=== PATIENT | male | born 1965 | race Two or more races ===

== ENCOUNTER 2017-04-27 19:36 | Emergency (ER) | payer MEDICAID ==
[~2017-04-27] VITALS: Ht 162.6 cm; Wt 72.6 kg
[2017-04-27 19:40] VITALS: BP 95/59
[2017-04-27 21:30] VITALS: BP 105/70
[2017-04-27 23:15] VITALS: BP 103/66
[2017-04-28 00:28] VITALS: BP 122/76
[2017-04-28 01:07] VITALS: BP 122/76
--- NOTE | 2017-04-29 09:51 | Emergency Room Report ---
History of Present Illness General Chief Complaint: Alcohol Intoxication Source: Patient Present Illness HPI 52-year-old male presents ED for evaluation. Patient was found sleeping in front of liquor store, owner professional engineer called 911. Patient has been there every day as per owner professional engineer. patient admits to drinking alcohol. Denies any drug use. Denies hitting his head or LOC. Patient states he wants food and a place to sleep. No other aggravating relieving factors. Denies any other associated symptoms Allergies: Coded Allergies: UNABLE TO ASSESS (Unverified , 04/27/17) Patient History Past Medical History: none Past Surgical History: none Pertinent Family History: none Social History: Reports: alcohol use, Denies: smoking, drug use Immunizations: UTD Reviewed Nursing Documentation: PMH: Agreed, PSxH: Agreed Nursing Documentation-PMH Past Medical History: No Stated History Review of Systems All Other Systems: negative except mentioned in HPI Physical Exam Vital Signs Date Time Temp Pulse Resp B/P (MAP) Pulse Ox O2 Delivery O2 Flow Rate FiO2 04/27/17 19:22 97.3 73 20 95/59 99 Room Air Sp02 EP Interpretation: reviewed, normal General Appearance: no apparent distress, alert, GCS 15, non-toxic Head: normocephalic, atraumatic Eyes: bilateral eye normal inspection, bilateral eye PERRL ENT: hearing grossly normal, normal pharynx, no angioedema, normal voice Neck: full range of motion, supple/symm/no masses Respiratory: chest non-tender, lungs clear, normal breath sounds, speaking full sentences Cardiovascular #1: regular rate, rhythm, no edema Cardiovascular #2: 2+ carotid (R), 2+ carotid (L), 2+ radial (R), 2+ radial (L) , 2+ dorsalis pedis (R), 2+ dorsalis pedis (L) Gastrointestinal: normal bowel sounds, non tender, soft, non-distended, no guarding, no rebound Rectal: deferred Genitourinary: normal inspection, no CVA tenderness Musculoskeletal: back normal, gait/station normal, normal range of motion, non- tender Neurologic: alert, oriented x3, responsive, motor strength/tone normal, sensory intact, speech normal Psychiatric: judgement/insight normal, memory normal, mood/affect normal, no suicidal/homicidal ideation Reflexes: 3+ bicep (R), 3+ bicep (L), 3+ tricep (R), 3+ tricep (L), 3+ knee (R) , 3+ knee (L) Skin: normal color, no rash, warm/dry, well hydrated Lymphatic: no adenopathy Medical Decision Making Diagnostic Impression: Primary Impression: Acute alcoholic intoxication Qualified Codes: F10.929 - Alcohol use, unspecified with intoxication, unspecified ER Course Hospital Course 52-year-old male presents to ED status post EtOH intoxication. Clinical course Patient placed on stretcher. Given that patient is able to provide an adequate history, I see no need to check blood work or place an IV. Patient allowed to sleep. My assessment shows no evidence of SI/HI requiring psychiatric evaluation. Patient allowed to rest in now awake alert oriented x3. ambulating without difficulty. Family is at bedside and can take patient home. Diagnosis - ETOH intoxication stable and discharged to home. Followup with PMD. Return to ED if symptoms recur or worsen Last Vital Signs Date Time Temp Pulse Resp B/P (MAP) Pulse Ox O2 Delivery O2 Flow Rate FiO2 04/28/17 01:07 98.2 87 18 122/76 95 Room Air Status: improved Disposition: HOME, SELF-CARE Condition: Stable Referrals: JAMARI BLANTON,REFERRING (PCP) Patient Instructions: Alcohol Intoxication ZONIA CASTILLO M.D. Apr 29, 2017 09:51
== END 2017-04-28 01:07 | disposition home or self-care (01) ==
LOC: EDBD 19:36 → EMR 19:55
DX: F10.929 Alcohol use, unspecified with intoxication, unspecified (principal)
CPT/HCPCS: 99283

== ENCOUNTER 2017-05-01 01:44 | Inpatient (IN) | payer MEDICAID ==
[~2017-05-01] VITALS: Ht 162.6 cm; Wt 68.0 kg
[2017-05-01] VITALS (8 sets, daily range): BP systolic 124–152; BP diastolic 74–90
[2017-05-01] MEDS ORDERED: NKM (01:50)
--- NOTE | 2017-05-01 01:55 | Emergency Room Report ---
History of Present Illness General Chief Complaint: Chest Pain Source: Patient Present Illness HPI 52-year-old male with unknown pmhx p/w alcohol intoxication. Patient admits to drinking alcohol, cannot quantify amount. Patient states that he gets heartburn intermittently, however denying any obvious chest pain or shortness of breath at this time. Denies any nausea vomiting. Allergies: Coded Allergies: No Known Allergies (Unverified , 05/01/17) Patient History Past Medical History: see triage record Past Surgical History: none Pertinent Family History: none Reviewed Nursing Documentation: PMH: Agreed, PSxH: Agreed Nursing Documentation-PMH Past Medical History: No Stated History Review of Systems All Other Systems: negative except mentioned in HPI Physical Exam Vital Signs Date Time Temp Pulse Resp B/P (MAP) Pulse Ox O2 Delivery O2 Flow Rate FiO2 05/01/17 01:45 98.1 124 16 142/84 99 Room Air Sp02 EP Interpretation: reviewed, normal General Appearance: non-toxic, other - Disheveled middle-aged male, intoxicated , smells of alcohol, not in acute distress Head: normocephalic, atraumatic Eyes: bilateral eye normal inspection, bilateral eye PERRL, bilateral eye EOMI ENT: normal ENT inspection, normal pharynx, normal voice, moist mucus membranes Neck: normal inspection, full range of motion, supple Respiratory: normal inspection, lungs clear, normal breath sounds, no respiratory distress, no retraction, no wheezing, speaking full sentences, chest symmetrical Cardiovascular #1: normal inspection, no edema, normal capillary refill, tachycardia Cardiovascular #2: 2+ radial (R), 2+ radial (L) Gastrointestinal: normal inspection, non tender, soft, non-distended, no guarding, other - Nontender all quadrants of the abdomen Genitourinary: no CVA tenderness Musculoskeletal: normal inspection, back normal, normal range of motion, non- tender Neurologic: normal inspection, alert, oriented x3, responsive, motor strength/ tone normal, sensory intact, normal gait, speech normal Psychiatric: normal inspection, judgement/insight normal, memory normal Skin: normal inspection, normal color, no rash, warm/dry, well hydrated, normal turgor Medical Decision Making Diagnostic Impression: Primary Impression: Acute alcoholic intoxication Additional Impression: Chest pain ER Course 52-year-old male p/w CP and alcohol intoxication DDX: ACS vs. CHF vs. pneumonia vs. gastritis/GERD vs. pneumothorax Alcohol intoxication Rule out intracranial bleed Plan: IV access, obtain labs including troponin, EKG, CXR CT head ASA 325 already given prior to arrival ER course: Labs- Troponin neg Patient has remained on a monitor, HD stable, chest pain improved after being given GI cocktail Disposition: Patient requires admission for chest pain. Patient requires admission for further workup, serial troponin, and possible stress test/cath inpatient. Please note that this Emergency Department Report was dictated using [employer]ivesuper[employer] blast furnace technology software, occasionally this can lead to erroneous entry secondary to interpretation by the dictation equipment. Laboratory Tests Test 05/01/17 02:00 White Blood Count 6.7 K/UL (4.8-10.8) Red Blood Count 4.23 M/UL (4.70-6.10) L Hemoglobin 8.6 G/DL (14.2-18.0) L Hematocrit 29.8 % (42.0-52.0) L Mean Corpuscular Volume 71 FL (80-99) L Mean Corpuscular Hemoglobin 20.4 PG (27.0-31.0) L Mean Corpuscular Hemoglobin Concent 28.8 G/DL (32.0-36.0) L Red Cell Distribution Width 19.1 % (11.6-14.8) H Platelet Count 259 K/UL (150-450) Mean Platelet Volume 6.4 FL (6.5-10.1) L Neutrophils (%) (Auto) 70.4 % (45.0-75.0) Lymphocytes (%) (Auto) 17.4 % (20.0-45.0) L Monocytes (%) (Auto) 9.8 % (1.0-10.0) Eosinophils (%) (Auto) 0.5 % (0.0-3.0) Basophils (%) (Auto) 1.9 % (0.0-2.0) Sodium Level 133 mEQ/L (135-145) L Potassium Level 3.5 mEQ/L (3.4-4.9) Chloride Level 91 mEQ/L (98-107) L Carbon Dioxide Level 23 mEQ/L (20-30) Anion Gap 19 (5-15) H Blood Urea Nitrogen 12 mg/dL (7-23) Creatinine 0.7 mg/dL (0.7-1.2) Estimate Glomerular Filtration Rate > 60 mL/min (>60) Glucose Level 146 mg/dL (74-106) H Calcium Level 9.3 mg/dL (8.6-10.2) Total Bilirubin 0.4 mg/dL (0.0-1.2) Aspartate Amino Transferase (AST) 40 U/L (5-40) Alanine Aminotransferase (ALT) 30 U/L (3-41) Alkaline Phosphatase 76 U/L (40-129) Total Creatine Kinase 133 U/L (38-174) Creatine Kinase MB 4.8 ng/mL (< 6.7) Creatine Kinase MB Relative Index 3.6 Troponin I < 0.30 ng/mL (<=0.30) Pro-B-Type Natriuretic Peptide 144 pg/mL (0-125) H Total Protein 7.4 g/dL (6.6-8.7) Albumin 3.7 g/dL (3.5-5.2) Globulin 3.7 g/dL Albumin/Globulin Ratio 1.0 (1.0-2.7) Serum Alcohol 105 mg/dL EKG Diagnostic Results Rate: tachycardiac Rhythm: NSR ST Segments: no acute changes ASA given to the pt in ED: Yes Rhythm Strip Diag. Results EP Interpretation: yes Rate: 120 Rhythm: NSR, no PVC's, no ectopy Chest X-Ray Diagnostic Results Chest X-Ray Diagnostic Results : Chest X-Ray Ordered: Yes # of Views/Limited/Complete: 1 View Indication: Chest Pain EP Interpretation: Yes Interpretation: no consolidation, no effusion, no pneumothorax, no acute cardiopulmonary disease Impression: No acute disease Electronically Signed by: Electronically signed by Kyle Soto MD CT/MRI/US Diagnostic Results CT/MRI/US Diagnostic Results : Imaging Test Ordered: CT head Impression CT HEAD: Scalp swelling/suspected scalp hematoma. No acute intracranial findings or skull fracture. Electronically signed by Kyle Soto MD Last Vital Signs Date Time Temp Pulse Resp B/P (MAP) Pulse Ox O2 Delivery O2 Flow Rate FiO2 05/01/17 01:45 98.1 124 16 142/84 99 Room Air Disposition: ADMITTED INPATIENT Condition: Serious Kyle Soto M.D. May 01, 2017 01:55
[2017-05-01 02:19] LABS: BASOPHILS % (AUTO) 1.9 % (0.0-2.0); EOSINOPHILS % (AUTO) 0.5 % (0.0-3.0); LYMPHOCYTES % (AUTO) 17.4 % (20.0-45.0); MEAN CORPUSCULAR HEMOGLOBIN 20.4 PG (27.0-31.0); MEAN CORPUSCULAR HGB CONC 28.8 G/DL (32.0-36.0); MEAN CORPUSCULAR VOLUME 71 FL (80-99); MEAN PLATELET VOLUME 6.4 FL (6.5-10.1); MONOCYTES % (AUTO) 9.8 % (1.0-10.0); NEUTROPHILS % (AUTO) 70.4 % (45.0-75.0); PLATELET COUNT 259 K/UL (150-450); RED BLOOD COUNT 4.23 M/UL (4.70-6.10); RED CELL DISTRIBUTION WIDTH 19.1 % (11.6-14.8); WHITE BLOOD COUNT 6.7 K/UL (4.8-10.8)
[2017-05-01] MEDS ORDERED: Dicyclomine HCl 10mg/5ml oral soln ORAL ONE (02:30)
[2017-05-01] MEDS ORDERED: Lidocaine 2% Visc 15ml soln ORAL ONE (02:30)
[2017-05-01] MEDS ORDERED: Mylanta II UD 30ml ORAL ONE (02:30)
[2017-05-01 02:35] LABS: ALANINE AMINOTRANSFERASE 30 U/L (3-41); ANION GAP 19 (5-15); ASPARTATE AMINO TRANSFERASE 40 U/L (5-40); CALCIUM 9.3 mg/dL (8.6-10.2); CARBON DIOXIDE 23 mEQ/L (20-30); CHLORIDE 91 mEQ/L (98-107); CREATININE 0.7 mg/dL (0.7-1.2); GLOMERULAR FILTRATION RATE > 60 mL/min (>60); HEMOLYSIS 5; POTASSIUM 3.5 mEQ/L (3.4-4.9); SODIUM 133 mEQ/L (135-145); TOTAL PROTEIN 7.4 g/dL (6.6-8.7); TROPONIN I < 0.30 ng/mL (<=0.30)
[2017-05-01 02:45] LABS: CKMB 4.8 ng/mL (< 6.7)
[2017-05-01] MEDS ORDERED: Mylanta II UD 30ml ORAL PRN (07:00)
[2017-05-01] MEDS ORDERED: Morphine Sulfate 2mg/ml Inj IVP PRN (07:00)
[2017-05-01] MEDS ORDERED: LORazepam Inj 2mg/ml 1ml IV PRN (07:00)
[2017-05-01] MEDS ORDERED: chlordiazePOXIDE 25mg Cap ORAL PRN (07:00)
--- NOTE | 2017-05-01 08:43 | History and Physical ---
History of Present Illness General Date patient seen: May 01, 2017 Time patient seen: 07:45 Reason for Hospitalization: Chest Pain Present Illness HPI 52y/old male with unknown PMH presented with acute alcohol intoxication. Patient admitted to drinking alcohol, cannot quantify amount. Patient reported chest discomfort , no SOB, no exertional component Patient stated that he gets heartburn intermittently, Denied any nausea vomiting. patient admitted to recent head trauma resulting in small head laceration workup in ED revealed no leucocytosis serum ETOH leel-105 anemic -8.6/29.8 with MCV 71 LFT stable lytes, renal parameters WNL troponin negative ECG with ST CK WNL CT head with scalp swelling/suspected scalp hematoma. No acute intracranial findings or skull fracture. Allergies: Coded Allergies: No Known Allergies (Unverified , 05/01/17) Medication History Scheduled No Known Medications* (NKM - No Known Medications*), 0 ., (Reported) Patient History Limited by: medical condition History Provided By: Patient Healthcare decision maker Resuscitation status Advanced Directive on File No Review of Systems Constitutional: Reports: weakness Eye: Reports: no symptoms ENT: Reports: no symptoms Respiratory: Reports: no symptoms Cardiovascular: Reports: no symptoms Gastrointestinal: Reports: no symptoms Genitourinary: Reports: no symptoms Musculoskeletal: Reports: no symptoms Skin: Reports: no symptoms Psychiatric: Reports: see HPI Neurological: Reports: see HPI Endocrine: Reports: no symptoms Hematologic/Lymphatic: Reports: no symptoms Physical Exam General Appearance: alert, other - shaky, dysarthria Lines, tubes and drains: peripheral HEENT: normocephalic, atraumatic - head laceration in righ occipital area , anicteric Neck: supple Respiratory/Chest: lungs clear, no respiratory distress, no accessory muscle use Cardiovascular/Chest: normal rate, regular rhythm - SR on tele Abdomen: non tender, soft Extremities: non-tender, no calf tenderness Skin Exam: warm/dry Neurologic: alert - dysarthric , responsive Musculoskeletal: normal muscle bulk Last 24 Hour Vital Signs Date Time Temp Pulse Resp B/P (MAP) Pulse Ox O2 Delivery O2 Flow Rate FiO2 05/01/17 05:43 98.1 120 13 152/84 100 Room Air 05/01/17 05:20 98.1 120 13 152/84 100 Room Air 05/01/17 03:30 98.2 119 16 144/90 99 Room Air 05/01/17 02:06 116 14 Room Air 05/01/17 02:06 98.1 116 16 142/84 99 Room Air 05/01/17 01:45 98.1 124 16 142/84 99 Room Air Laboratory Tests Test 05/01/17 02:00 05/01/17 05:30 White Blood Count 6.7 K/UL (4.8-10.8) Red Blood Count 4.23 M/UL (4.70-6.10) L Hemoglobin 8.6 G/DL (14.2-18.0) L Hematocrit 29.8 % (42.0-52.0) L Mean Corpuscular Volume 71 FL (80-99) L Mean Corpuscular Hemoglobin 20.4 PG (27.0-31.0) L Mean Corpuscular Hemoglobin Concent 28.8 G/DL (32.0-36.0) L Red Cell Distribution Width 19.1 % (11.6-14.8) H Platelet Count 259 K/UL (150-450) Mean Platelet Volume 6.4 FL (6.5-10.1) L Neutrophils (%) (Auto) 70.4 % (45.0-75.0) Lymphocytes (%) (Auto) 17.4 % (20.0-45.0) L Monocytes (%) (Auto) 9.8 % (1.0-10.0) Eosinophils (%) (Auto) 0.5 % (0.0-3.0) Basophils (%) (Auto) 1.9 % (0.0-2.0) Sodium Level 133 mEQ/L (135-145) L Potassium Level 3.5 mEQ/L (3.4-4.9) Chloride Level 91 mEQ/L (98-107) L Carbon Dioxide Level 23 mEQ/L (20-30) Anion Gap 19 (5-15) H Blood Urea Nitrogen 12 mg/dL (7-23) Creatinine 0.7 mg/dL (0.7-1.2) Estimat Glomerular Filtration Rate > 60 mL/min (>60) Glucose Level 146 mg/dL (74-106) H Calcium Level 9.3 mg/dL (8.6-10.2) Total Bilirubin 0.4 mg/dL (0.0-1.2) Aspartate Amino Transf (AST/SGOT) 40 U/L (5-40) Alanine Aminotransferase (ALT/SGPT) 30 U/L (3-41) Alkaline Phosphatase 76 U/L (40-129) Total Creatine Kinase 133 U/L (38-174) Creatine Kinase MB 4.8 ng/mL (< 6.7) Creatine Kinase MB Relative Index 3.6 Troponin I < 0.30 ng/mL (<=0.30) Pro-B-Type Natriuretic Peptide 144 pg/mL (0-125) H Total Protein 7.4 g/dL (6.6-8.7) Albumin 3.7 g/dL (3.5-5.2) Globulin 3.7 g/dL Albumin/Globulin Ratio 1.0 (1.0-2.7) Serum Alcohol 105 mg/dL Urine Opiates Screen Negative (NEGATIVE) Urine Barbiturates Screen Negative (NEGATIVE) Phencyclidine (PCP) Screen Negative (NEGATIVE) Urine Amphetamines Screen Negative (NEGATIVE) Urine Benzodiazepines Screen Negative (NEGATIVE) Urine Cocaine Screen Negative (NEGATIVE) Urine Marijuana (THC) Screen Negative (NEGATIVE) Height (Feet): 5 Height (Inches): 4.00 Weight (Pounds): 150 Medications Current Medications Medications (Trade) Dose Ordered Sig/Sagar Route PRN Reason Start Time Stop Time Status Last Admin Dose Admin Acetaminophen (Tylenol) 650 mg Q4H PRN ORAL T>100.5 F 05/01/17 07:00 05/31/17 06:59 Al Hydroxide/Mg Hydroxide (Mylanta II) 30 ml Q6H PRN ORAL dyspepsia 05/01/17 07:00 05/31/17 06:59 Chlordiazepoxide (Librium) 25 mg Q6H PRN ORAL Agitation 05/01/17 07:00 05/08/17 06:59 Dextrose (Dextrose 50%) STAT PRN IV Hypoglycemia 05/01/17 07:00 05/31/17 06:59 Folic Acid 1 mg/ Magnesium Sulfate 2000 mg/ Multivitamins 10 ml/Sodium Chloride 1,014.2 ml @ 125 mls/ hr Q24H IV 05/01/17 09:00 05/31/17 08:59 Heparin Sodium (Porcine) (Heparin 5000 units/ml) 5,000 units EVERY 12 HOURS SUBQ 05/01/17 09:00 05/31/17 08:59 Lorazepam (Ativan 2mg/ml 1ml) 2 mg EVERY HOUR PRN IV seizures 05/01/17 07:00 05/08/17 06:59 Morphine Sulfate (Morphine Sulfate) 1 mg Q4H PRN IVP PAIN 4-10 05/01/17 07:00 05/08/17 06:59 Ondansetron HCl (Zofran) 4 mg Q6H PRN IVP Nausea & Vomiting 05/01/17 07:00 05/31/17 06:59 Polyethylene Glycol (Miralax) 17 gm HSPRN PRN ORAL Constipation 05/01/17 21:00 05/31/17 20:59 Thiamine HCl 100 mg/Dextrose 56 ml @ 112 mls/hr Q24H IVPB 05/01/17 09:00 05/31/17 08:59 Zolpidem Tartrate (Ambien) 5 mg HSPRN PRN ORAL Insomnia 05/01/17 21:00 05/08/17 20:59 Assessment/Plan Assessment/Plan ASSESSMENT chest pain r/o ACS heartburn, GERD acute alcohol intoxication acute toxic encephalopathy 2 to acute alcohol intoxication microcytic anemia ETOH abuse and dependency hx of recent fall with scalp laceration PLAN OF CARE tele serial troponin ECHO ECG first troponin negative, ECG no acute changes chest pain more described as discomfort from heartburn, likely GERD cardio eval CT head venous Duplex BLE start ASA, low dose BB for now banana bag Librium prn for withdrawal symptoms Ativan prn seizures certified travel counselor on abstinence from ETOH neuro eval GI prophylaxis monitor HH, transfuse prn anemia w/up case discussed and evaluated by supervising physician Carmelina Fitch NP ([facility]) May 01, 2017 08:43
[2017-05-01] MEDS: Heparin 5000 units/ml inj SUBQ SCH ×2 (09:15→21:25)
[2017-05-01] MEDS: Thiamine 100mg in D5W 55ml IVPB SCH (09:16)
[2017-05-01] MEDS: Metoprolol Tartrate 12.5mg TAB ORAL SCH ×2 (09:16→21:27)
[2017-05-01] MEDS: Aspirin EC 81mg tab ORAL SCH (09:16)
[2017-05-01] MEDS: Folic Acid 1 MG, Magnesium Sulfate 2,000 MG, Multivitamin - 12 Injection 10 ML in NS w/... IV SCH (09:21)
--- NOTE | 2017-05-01 09:33 | Diagnostic Imaging Report ---
Indications: Altered metal status, pain, trauma Technique: Spiral acquisitions obtained through the brain. Angled axial and coronal 5 x 5 mm slices were reconstructed. Total dose length product 1411 mGycm. CTDI vol(s) 70 mGy. Dose reduction achieved using automated exposure control Comparison: 06/15/2005 Findings: There is a large right high parietal scalp hematoma, not evident previously. There is mild prominence to the ventricles and extra-axial CSF spaces, is likely more striking than previous, particularly in the cerebellum. No acute hemorrhage or edema. No mass effect or midline shift. Normal dwyer-white differentiation. The bones appear somewhat diffusely atherosclerotic. This is unchanged on the prior study. The ethmoid sinuses demonstrate mild mucosal disease. Impression: Large right high parietal scalp hematoma Negative for acute intracranial bleed or mass effect. No evidence of calvarial injury Mild central and cerebral cortical volume loss, advanced for age This agrees with the preliminary interpretation provided overnight by [facility] teleradiology service. The CT scanner at [facility] is accredited by the [employer] and the scans are performed using protocols designed to limit radiation exposure to as low as reasonably achievable to attain images of sufficient resolution adequate for diagnostic evaluation.
--- NOTE | 2017-05-01 12:48 | Cardiology Report ---
APPROVED REPORT EKG Measurement Heart [id number] Sinus tachycardia Otherwise normal ECG
--- NOTE | 2017-05-01 13:24 | Cardiology Report ---
APPROVED REPORT EXAM: Two-dimensional and M-mode echocardiogram with Doppler and color Doppler. INDICATION LV function M-Mode DIMENSIONS IVSd1.6 (0.7-1.1cm)Left Atrium (MM)3.9 (1.6-4.0cm) LVDd3.8 (3.5-5.6cm)Aortic Root2.8 (2.0-3.7cm) PWd1.3 (0.7-1.1cm)Aortic Cusp Exc.2.0 (1.5-2.0cm) LVDs2.3 (2.5-4.0cm) PWs2.1 cm Other Information Technically limited study due to poor acoustical windows. Normal left ventricular chamber size, systolic function and wall motion to extent visualized. Left ventricular ejection fraction grossly estimated to be 70 %. Study quality precludes accurate assessment of regional wall motion. Mild left ventricular hypertrophy by 2-D. Anterior Echo-free space, may be due to pericardial fat or effusion. All other cardiac chamber sizes are within normal limits. Focal aortic valve sclerosis with adequate cusp excursion. Thickened mitral valve leaflets with normal excursion. Mitral annulus and aortic root calcification. Pulmonic valve not well visualized. Normal tricuspid valve structure. IVC at normal size with physiologic collapse. A color flow and spectral Doppler study was performed and revealed: Trace mitral regurgitation. Mitral diastolic velocities suggest reduced left ventricular relaxation c/w mild LV diastolic dysfunction (Grade I). Trace to mild tricuspid regurgitation. Tricuspid systolic velocities suggests peak right ventricular systolic pressure of 28 mmHg.
--- NOTE | 2017-05-01 15:00 | Diagnostic Imaging Report ---
Indication: PAIN Technique: One view of the chest Comparison: 06/25/2005 Findings: There is a retrocardiac hiatal hernia. Lungs and pleural spaces are clear. The heart size is normal. The patient is rotated to the right. Impression: No acute process Hiatal hernia This agrees with the preliminary interpretation provided by the emergency room physician
--- NOTE | 2017-05-01 15:59 | Cardiology Progress Note ---
Assessment/Plan Assessment/Plan [id number] chest pain recetn fall with scal laceration poor historian Objective Last 24 Hour Vital Signs Date Time Temp Pulse Resp B/P (MAP) Pulse Ox O2 Delivery O2 Flow Rate FiO2 05/01/17 12:00 97.5 105 20 136/77 94 Room Air 05/01/17 11:57 111 05/01/17 09:16 122 138/80 05/01/17 08:00 98.2 122 20 138/80 95 Room Air 05/01/17 07:39 125 05/01/17 05:43 98.1 120 13 152/84 100 Room Air 05/01/17 05:20 98.1 120 13 152/84 100 Room Air 05/01/17 03:30 98.2 119 16 144/90 99 Room Air 05/01/17 02:06 116 14 Room Air 05/01/17 02:06 98.1 116 16 142/84 99 Room Air 05/01/17 01:45 98.1 124 16 142/84 99 Room Air Intake and Output 05/01/17 05/02/17 19:00 07:00 Intake Total 806 ml Balance 806 ml IV Total 806 ml Laboratory Tests Test 05/01/17 02:00 05/01/17 05:30 White Blood Count 6.7 K/UL (4.8-10.8) Red Blood Count 4.23 M/UL (4.70-6.10) L Hemoglobin 8.6 G/DL (14.2-18.0) L Hematocrit 29.8 % (42.0-52.0) L Mean Corpuscular Volume 71 FL (80-99) L Mean Corpuscular Hemoglobin 20.4 PG (27.0-31.0) L Mean Corpuscular Hemoglobin Concent 28.8 G/DL (32.0-36.0) L Red Cell Distribution Width 19.1 % (11.6-14.8) H Platelet Count 259 K/UL (150-450) Mean Platelet Volume 6.4 FL (6.5-10.1) L Neutrophils (%) (Auto) 70.4 % (45.0-75.0) Lymphocytes (%) (Auto) 17.4 % (20.0-45.0) L Monocytes (%) (Auto) 9.8 % (1.0-10.0) Eosinophils (%) (Auto) 0.5 % (0.0-3.0) Basophils (%) (Auto) 1.9 % (0.0-2.0) Sodium Level 133 mEQ/L (135-145) L Potassium Level 3.5 mEQ/L (3.4-4.9) Chloride Level 91 mEQ/L (98-107) L Carbon Dioxide Level 23 mEQ/L (20-30) Anion Gap 19 (5-15) H Blood Urea Nitrogen 12 mg/dL (7-23) Creatinine 0.7 mg/dL (0.7-1.2) Estimat Glomerular Filtration Rate > 60 mL/min (>60) Glucose Level 146 mg/dL (74-106) H Calcium Level 9.3 mg/dL (8.6-10.2) Total Bilirubin 0.4 mg/dL (0.0-1.2) Aspartate Amino Transf (AST/SGOT) 40 U/L (5-40) Alanine Aminotransferase (ALT/SGPT) 30 U/L (3-41) Alkaline Phosphatase 76 U/L (40-129) Total Creatine Kinase 133 U/L (38-174) Creatine Kinase MB 4.8 ng/mL (< 6.7) Creatine Kinase MB Relative Index 3.6 Troponin I < 0.30 ng/mL (<=0.30) Pro-B-Type Natriuretic Peptide 144 pg/mL (0-125) H Total Protein 7.4 g/dL (6.6-8.7) Albumin 3.7 g/dL (3.5-5.2) Globulin 3.7 g/dL Albumin/Globulin Ratio 1.0 (1.0-2.7) Serum Alcohol 105 mg/dL Urine Opiates Screen Negative (NEGATIVE) Urine Barbiturates Screen Negative (NEGATIVE) Phencyclidine (PCP) Screen Negative (NEGATIVE) Urine Amphetamines Screen Negative (NEGATIVE) Urine Benzodiazepines Screen Negative (NEGATIVE) Urine Cocaine Screen Negative (NEGATIVE) Urine Marijuana (THC) Screen Negative (NEGATIVE) ARAM BYERS May 01, 2017 15:59
[2017-05-01] MEDS ORDERED: Miralax 17gm pkt ORAL PRN (21:00)
[2017-05-01] MEDS ORDERED: Zolpidem 5mg tab ORAL PRN (21:00)
[2017-05-01] MEDS: Vitamin A&D Oint 2oz Tube TOPIC SCH (21:27)
[2017-05-02 04:00] VITALS: BP 111/63
[2017-05-02 08:00] VITALS: BP 127/81
[2017-05-02 08:32] LABS: MEAN CORPUSCULAR HEMOGLOBIN 20.9 PG (27.0-31.0); MEAN CORPUSCULAR HGB CONC 29.8 G/DL (32.0-36.0); MEAN CORPUSCULAR VOLUME 70 FL (80-99); MEAN PLATELET VOLUME 7.2 FL (6.5-10.1); PLATELET COUNT 218 K/UL (150-450); RED CELL DISTRIBUTION WIDTH 19.7 % (11.6-14.8); WHITE BLOOD COUNT 4.5 K/UL (4.8-10.8)
[2017-05-02 08:53] LABS: TROPONIN I < 0.30 ng/mL (<=0.30)
[2017-05-02 08:55] LABS: ALANINE AMINOTRANSFERASE 19 U/L (3-41); ALBUMIN/GLOBULIN RATIO 0.9 (1.0-2.7); ANION GAP 11 (5-15); ASPARTATE AMINO TRANSFERASE 22 U/L (5-40); CALCIUM 8.2 mg/dL (8.6-10.2); CARBON DIOXIDE 28 mEQ/L (20-30); CHLORIDE 97 mEQ/L (98-107); CREATININE 0.6 mg/dL (0.7-1.2); GLOMERULAR FILTRATION RATE > 60 mL/min (>60); HEMOLYSIS 0; SODIUM 136 mEQ/L (135-145); TOTAL PROTEIN 6.3 g/dL (6.6-8.7)
[2017-05-02 09:00] LABS: HEMOLYSIS 0; IRON 16 ug/dL (59-158); TOTAL IRON BINDING CAPACITY 312 ug/dL (250-400)
[2017-05-02 09:03] LABS: FERRITIN 10 ng/mL (10-230)
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
[2017-05-02 09:54] LABS: BAND NEUTROPHILS % (MANUAL) 0 % (0-8); BASOPHILS % (MANUAL) 0 % (0-2); EOSINOPHILS % (MANUAL) 0 % (0-3); HYPOCHROMASIA 2+; LYMPHOCYTES % (MANUAL) 28 % (20-45); MICROCYTES 1+; NEUTROPHILS % (MANUAL) 62 % (45-75); PLATELET ESTIMATE ADEQUATE; PLATELET MORPHOLOGY NORMAL; TOTAL CELLS COUNTED 100
[2017-05-02 09:55] LABS: ANISOCYTOSIS 2+
[2017-05-02] MEDS: Thiamine 100mg in D5W 55ml IVPB SCH (10:04)
[2017-05-02] MEDS: Folic Acid 1 MG, Magnesium Sulfate 2,000 MG, Multivitamin - 12 Injection 10 ML in NS w/... IV SCH (10:04)
[2017-05-02] MEDS: Aspirin EC 81mg tab ORAL SCH (10:04)
[2017-05-02] MEDS ORDERED: Adenosine Inj IVP ONE (10:30)
[2017-05-02 12:00] VITALS: BP 139/67
--- NOTE | 2017-05-02 12:28 | Pulmonology Progress Note ---
Assessment/Plan Assessment/Plan ASSESSMENT chest pain r/o ACS heartburn, GERD acute alcohol intoxication acute toxic encephalopathy 2 to acute alcohol intoxication microcytic anemia , iron deficiency r/o GI bleeding ETOH abuse and dependency hx of recent fall with scalp laceration large right parietal scalp hematoma 2 to fall PLAN OF CARE tele serial troponin negative ECG no acute ischemic changes , thus patient was r/o for acute ID ECHO with pEF 70% and RVSP of 28 cardio follows cardiolyte stress test today as per cardio chest pain more described as discomfort from heartburn, likely GERD CT head with Large right high parietal scalp hematoma Negative for acute intracranial bleed or mass effect. No evidence of calvarial injury venous Duplex BLE continue ASA, and low dose BB banana bag Librium prn for withdrawal symptoms Ativan prn seizures program counselor on abstinence from ETOH neuro eval pending GI prophylaxis monitor HH, transfuse prn anemia w/up c/w anemia of iron deficiency, low ferritin stores HH down Hgb- 7.5 today give 1 u PRBC today, start Venofer x 3 days from tomorrow stool OB pending CEA WNL GI consult for ID microcytic anemia, possible GI bleeding pain management case discussed and evaluated by supervising physician Subjective Allergies: Coded Allergies: No Known Allergies (Unverified , 05/01/17) Subjective Cardiolite stress test pending for today no chest pain, no SOB Objective Last 24 Hour Vital Signs Date Time Temp Pulse Resp B/P (MAP) Pulse Ox O2 Delivery O2 Flow Rate FiO2 05/02/17 08:00 97.1 81 19 127/81 95 Room Air 05/02/17 07:20 72 05/02/17 04:00 97.7 78 20 111/63 94 Room Air 05/02/17 04:00 79 05/02/17 00:00 118 05/01/17 23:53 98.7 79 18 127/74 96 Room Air 05/01/17 21:27 117 124/86 05/01/17 20:00 85 05/01/17 20:00 98.1 117 20 124/86 97 Room Air 05/01/17 16:00 97.3 96 20 135/84 96 Room Air 05/01/17 15:15 104 Objective General Appearance: alert, shaky, disheveled appearance, some dysarthria Lines, tubes and drains: peripheral HEENT: normocephalic, atraumatic , head laceration in right occipital area , anicteric Neck: supple Respiratory/Chest: lungs clear, no respiratory distress, no accessory muscle use Cardiovascular/Chest: normal rate, regular rhythm - SR on tele Abdomen: non tender, soft Extremities: non-tender, no calf tenderness Skin Exam: warm/dry Neurologic: alert - dysarthric , responsive Musculoskeletal: normal muscle bulk Laboratory Tests 05/02/17 07:50: White Blood Count 4.5L, Red Blood Count 3.60L, Hemoglobin 7.5L, Hematocrit 25.3L , Mean Corpuscular Volume 70L, Mean Corpuscular Hemoglobin 20.9L, Mean Corpuscular Hemoglobin Concent 29.8L, Red Cell Distribution Width 19.7H, Platelet Count 218, Mean Platelet Volume 7.2, Neutrophils (%) (Auto) , Lymphocytes (%) (Auto) , Monocytes (%) (Auto) , Eosinophils (%) (Auto) , Basophils (%) (Auto) , Differential Total Cells Counted 100, Neutrophils % ( Manual) 62, Lymphocytes % (Manual) 28, Monocytes % (Manual) 10, Eosinophils % ( Manual) 0, Basophils % (Manual) 0, Band Neutrophils 0, Platelet Estimate Adequate, Platelet Morphology Normal, Hypochromasia 2+, Anisocytosis 2+, Microcytosis 1+, Sodium Level 136, Potassium Level 4.0, Chloride Level 97L, Carbon Dioxide Level 28, Anion Gap 11, Blood Urea Nitrogen 11, Creatinine 0.6L, Estimat Glomerular Filtration Rate > 60, Glucose Level 98, Calcium Level 8.2L, Magnesium Level 2.0, Iron Level 16L, Total Iron Binding Capacity 312, Percent Iron Saturation 5L, Unsaturated Iron Binding 296, Ferritin 10, Total Bilirubin 0.4, Aspartate Amino Transf (AST/SGOT) 22, Alanine Aminotransferase (ALT/SGPT) 19, Alkaline Phosphatase 59, Troponin I < 0.30, Total Protein 6.3L, Albumin 3.1L , Globulin 3.2, Albumin/Globulin Ratio 0.9L, Carcinoembryonic Antigen 2.8, Vitamin B12 Level 622, Folate [Pending] Current Medications Medications (Trade) Dose Ordered Sig/Sagar Route PRN Reason Start Time Stop Time Status Last Admin Dose Admin Acetaminophen (Tylenol) 650 mg Q4H PRN ORAL T>100.5 F 05/01/17 07:00 05/31/17 06:59 Al Hydroxide/Mg Hydroxide (Mylanta II) 30 ml Q6H PRN ORAL dyspepsia 05/01/17 07:00 05/31/17 06:59 05/01/17 10:26 Aspirin (Ecotrin) 81 mg DAILY ORAL 05/01/17 09:00 05/31/17 08:59 05/02/17 10:04 Chlordiazepoxide (Librium) 25 mg Q6H PRN ORAL Agitation 05/01/17 07:00 05/08/17 06:59 Dextrose (Dextrose 50%) STAT PRN IV Hypoglycemia 05/01/17 07:00 05/31/17 06:59 Folic Acid 1 mg/ Magnesium Sulfate 2000 mg/ Multivitamins 10 ml/Sodium Chloride 1,014.2 ml @ 125 mls/ hr Q24H IV 05/01/17 09:00 05/31/17 08:59 05/02/17 10:04 Lorazepam (Ativan 2mg/ml 1ml) 2 mg EVERY HOUR PRN IV seizures 05/01/17 07:00 05/08/17 06:59 Metoprolol Tartrate (Lopressor) 12.5 mg Q12HR ORAL 05/01/17 09:00 05/31/17 08:59 05/01/17 21:27 Morphine Sulfate (Morphine Sulfate) 1 mg Q4H PRN IVP PAIN 4-10 05/01/17 07:00 05/08/17 06:59 Ondansetron HCl (Zofran) 4 mg Q6H PRN IVP Nausea & Vomiting 05/01/17 07:00 05/31/17 06:59 Polyethylene Glycol (Miralax) 17 gm HSPRN PRN ORAL Constipation 05/01/17 21:00 05/31/17 20:59 Ranitidine HCl (Zantac) 150 mg TWICE A DAY ORAL 05/01/17 09:00 05/31/17 08:59 05/02/17 10:05 Thiamine HCl 100 mg/Dextrose 56 ml @ 112 mls/hr Q24H IVPB 05/01/17 09:00 05/31/17 08:59 05/02/17 10:04 Vitamin A/Vitamin D (A & D Oint) 1 applic EVERY 12 HOURS TOPIC 05/01/17 21:00 05/31/17 20:59 05/01/17 21:27 Zolpidem Tartrate (Ambien) 5 mg HSPRN PRN ORAL Insomnia 05/01/17 21:00 05/08/17 20:59 05/01/17 21:27 [place]ine ([facility])Carmelina NP May 02, 2017 12:28
--- NOTE | 2017-05-02 12:31 | Wound Care Consultation ---
Wound Assessment Wound Assessment #1: Wound Number: 1 Wound Present on Admission: Yes New Wound: No Status Change of Wound: No Wound Location Body Site Modif: mid Wound Location Body Site: nose Wound Type: traumatic injury Eli Test: Does not Eli Wound Thickness: Full Thickness Wound Length: 1.5 Wound Width: 1.5 Wound Depth: utd Percent of Wound Bed Yellow/Wh: 100 - dry scab Wound Drainage Amount: None Wound Drainage Odor: None/Absent Tissue Surrounding Wound: Intact Wound General Appearance: Asymptomatic Wound Assessment #2: Wound Number: 2 Wound Present on Admission: Yes New Wound: No Status Change of Wound: No Wound Location Body Site Modif: left, right, upper, lower Wound Location Body Site: other - extremities Wound Type: traumatic injury Eli Test: Does not Eli Wound Drainage Amount: None Wound Drainage Odor: None/Absent Tissue Surrounding Wound: Intact Wound General Appearance: Open to air, Clean/Dry Wound Comment #1 Bridge of the nose with dry scab #2 Upper and lower extremities with dry scabs S/p fall traumatic injures. Recommendation -Keep clean and dry -Optimize nutrition -Assess and f/u accordingly for any changes PRIMO RAMOS RN May 02, 2017 12:31
--- NOTE | 2017-05-02 13:33 | GI Initial Consult Note ---
History of Present Illness General Date patient seen: May 02, 2017 Time patient seen: 13:26 Reason for Hospitalization: Chest Pain Referring physician: GILBERTO TANG Reason for Consultation: ANEMIA Present Illness HPI 52-year-old male with unknown pmhx p/w alcohol intoxication. Patient admits to drinking alcohol, cannot quantify amount. Patient states that he gets heartburn intermittently, however denying any obvious chest pain or shortness of breath at this time. Denies any nausea vomiting. GI Consult. HPI as noted above. GI consulted for anemia. Pt seen on floor, awake A&Ox4 agitated with no active s/sx of N/V/D. Patient presents today with anemia low Hgb requiring blood transfusion, hypoalbuminemia, iron deficiency and serum alcohol of 105. Patient is states he has had an EGD and colonoscopy performed before, but is unsure when and where it was performed. Home Meds Reported Medications No Known Medications* (NKM - No Known Medications*) ., 0 ., 0 Refills 05/01/17 Med list reviewed/reconciled: Yes Allergies: Coded Allergies: No Known Allergies (Unverified , 05/01/17) Patient History History Provided By: Patient, Medical Record PMH Narrative Past Medical History: see triage record Past Surgical History: none Pertinent Family History: none Reviewed Nursing Documentation: PMH: Agreed, PSxH: Agreed Nursing Documentation-PM Past Medical History: No Stated History Social History: Reports: alcohol use Review of Systems All Other Systems: negative except mentioned in HPI Physical Exam Vital Signs Date Time Temp Pulse Resp B/P (MAP) Pulse Ox O2 Delivery O2 Flow Rate FiO2 05/01/17 01:45 98.1 124 16 142/84 99 Room Air Sp02 EP Interpretation: reviewed Labs Laboratory Tests Test 05/02/17 07:50 White Blood Count 4.5 K/UL (4.8-10.8) L Red Blood Count 3.60 M/UL (4.70-6.10) L Hemoglobin 7.5 G/DL (14.2-18.0) L Hematocrit 25.3 % (42.0-52.0) L Mean Corpuscular Volume 70 FL (80-99) L Mean Corpuscular Hemoglobin 20.9 PG (27.0-31.0) L Mean Corpuscular Hemoglobin Concent 29.8 G/DL (32.0-36.0) L Red Cell Distribution Width 19.7 % (11.6-14.8) H Platelet Count 218 K/UL (150-450) Mean Platelet Volume 7.2 FL (6.5-10.1) Neutrophils (%) (Auto) % (45.0-75.0) Lymphocytes (%) (Auto) % (20.0-45.0) Monocytes (%) (Auto) % (1.0-10.0) Eosinophils (%) (Auto) % (0.0-3.0) Basophils (%) (Auto) % (0.0-2.0) Differential Total Cells Counted 100 Neutrophils % (Manual) 62 % (45-75) Lymphocytes % (Manual) 28 % (20-45) Monocytes % (Manual) 10 % (1-10) Eosinophils % (Manual) 0 % (0-3) Basophils % (Manual) 0 % (0-2) Band Neutrophils 0 % (0-8) Platelet Estimate Adequate Platelet Morphology Normal Hypochromasia 2+ Anisocytosis 2+ Microcytosis 1+ Sodium Level 136 mEQ/L (135-145) Potassium Level 4.0 mEQ/L (3.4-4.9) Chloride Level 97 mEQ/L (98-107) L Carbon Dioxide Level 28 mEQ/L (20-30) Anion Gap 11 (5-15) Blood Urea Nitrogen 11 mg/dL (7-23) Creatinine 0.6 mg/dL (0.7-1.2) L Estimat Glomerular Filtration Rate > 60 mL/min (>60) Glucose Level 98 mg/dL (74-106) Calcium Level 8.2 mg/dL (8.6-10.2) L Magnesium Level 2.0 mg/dL (1.7-2.5) Iron Level 16 ug/dL (59-158) L Total Iron Binding Capacity 312 ug/dL (250-400) Percent Iron Saturation 5 % (15-50) L Unsaturated Iron Binding 296 ug/dL (112-346) Ferritin 10 ng/mL (10-230) Total Bilirubin 0.4 mg/dL (0.0-1.2) Aspartate Amino Transf (AST/SGOT) 22 U/L (5-40) Alanine Aminotransferase (ALT/SGPT) 19 U/L (3-41) Alkaline Phosphatase 59 U/L (40-129) Troponin I < 0.30 ng/mL (<=0.30) Total Protein 6.3 g/dL (6.6-8.7) L Albumin 3.1 g/dL (3.5-5.2) L Globulin 3.2 g/dL Albumin/Globulin Ratio 0.9 (1.0-2.7) L Carcinoembryonic Antigen 2.8 ng/mL Vitamin B12 Level 622 pg/mL (211-946) Folate Pending General Appearance: well appearing, no apparent distress, alert Head: normocephalic Neck: supple Respiratory: normal breath sounds, no respiratory distress Cardiovascular: normal rate Gastrointestinal: normal inspection, non tender, soft Rectal: deferred Musculoskeletal: back normal Neurologic: normal inspection, alert, oriented x3, responsive Psychiatric: judgement/insight normal, anxious Skin: normal inspection, normal color, no rash, warm/dry Lymphatic: normal inspection, no adenopathy Current Medications Current Medications Medications (Trade) Dose Ordered Sig/Sagar Route PRN Reason Start Time Stop Time Status Last Admin Dose Admin Acetaminophen (Tylenol) 650 mg Q4H PRN ORAL T>100.5 F 05/01/17 07:00 05/31/17 06:59 Al Hydroxide/Mg Hydroxide (Mylanta II) 30 ml Q6H PRN ORAL dyspepsia 05/01/17 07:00 05/31/17 06:59 05/01/17 10:26 Aspirin (Ecotrin) 81 mg DAILY ORAL 05/01/17 09:00 05/31/17 08:59 05/02/17 10:04 Chlordiazepoxide (Librium) 25 mg Q6H PRN ORAL Agitation 05/01/17 07:00 05/08/17 06:59 Dextrose (Dextrose 50%) STAT PRN IV Hypoglycemia 05/01/17 07:00 05/31/17 06:59 Folic Acid 1 mg/ Magnesium Sulfate 2000 mg/ Multivitamins 10 ml/Sodium Chloride 1,014.2 ml @ 125 mls/ hr Q24H IV 05/01/17 09:00 05/31/17 08:59 05/02/17 10:04 Iron Sucrose 100 mg/Sodium Chloride 60 ml @ 240 mls/hr BEDTIME IV 05/03/17 21:00 05/05/17 21:14 Lorazepam (Ativan 2mg/ml 1ml) 2 mg EVERY HOUR PRN IV seizures 05/01/17 07:00 05/08/17 06:59 Metoprolol Tartrate (Lopressor) 12.5 mg Q12HR ORAL 05/01/17 09:00 05/31/17 08:59 05/01/17 21:27 Morphine Sulfate (Morphine Sulfate) 1 mg Q4H PRN IVP PAIN 4-10 05/01/17 07:00 05/08/17 06:59 Ondansetron HCl (Zofran) 4 mg Q6H PRN IVP Nausea & Vomiting 05/01/17 07:00 05/31/17 06:59 Polyethylene Glycol (Miralax) 17 gm HSPRN PRN ORAL Constipation 05/01/17 21:00 05/31/17 20:59 Ranitidine HCl (Zantac) 150 mg TWICE A DAY ORAL 05/01/17 09:00 05/31/17 08:59 05/02/17 10:05 Thiamine HCl 100 mg/Dextrose 56 ml @ 112 mls/hr Q24H IVPB 05/01/17 09:00 05/31/17 08:59 05/02/17 10:04 Vitamin A/Vitamin D (A & D Oint) 1 applic EVERY 12 HOURS TOPIC 05/01/17 21:00 05/31/17 20:59 05/01/17 21:27 Zolpidem Tartrate (Ambien) 5 mg HSPRN PRN ORAL Insomnia 05/01/17 21:00 05/08/17 20:59 05/01/17 21:27 GI: Plan Problems: (1) Anemia (2) Iron deficiency (3) Hypoalbuminemia (4) Acute alcoholic intoxication Plan utox unremarkable anemia work up - iron deficiency >> venofer OB stool r/o GI bleed pending >> will consider GI procedures for Friday monitor H&H, prn transfusions elevated serum alcohol level cont H2B IVF + electrolyte replacement fu labs Discussed with Dr. Pelaez. Thank you for referring this patient, we will follow. Vanessa Carr N.P. May 02, 2017 13:33
[2017-05-02] MEDS: Vitamin A&D Oint 2oz Tube TOPIC SCH ×2 (13:43→20:45)
[2017-05-02] MEDS: Metoprolol Tartrate 12.5mg TAB ORAL SCH ×2 (13:43→20:45)
--- NOTE | 2017-05-02 15:00 | Diagnostic Imaging Report ---
Indications: Chest pain Technique: Single day single isotope protocol utilized. Initially, resting images obtained using IV administration 10.5 millicuries 99M technetium Myoview. Subsequently, patient underwent adenosine stress testing. See cardiology report for details. During adenosine infusion, IV administration 32.2 mCi 99 M technetium Myoview. SPECT and planar images obtained. SPECT images gated to 8 phases of the cardiac cycle were also obtained, and reformatted into cine images for evaluation of ejection fraction. Comparison: None Findings: Cardiology report does not describe presence or absence of symptoms during infusion. Per cardiology report, resting EKG demonstrates normal sinus rhythm, no significant ST-T wave changes during infusion. Imaging demonstrates equivocal perfusion defect of the anteroseptal wall on the post stress images which is not evident on the resting images. There is also questionably decreased perfusion in the inferolateral wall near the apex, likewise not evident on the resting images. Calculated post stress ejection fraction 62%. No focal wall motion abnormality Impression: Nonischemic clinical response to pharmacologic stress, per cardiology report Nonischemic electrocardiographic response to pharmacologic stress, per cardiology report Questionable reversible perfusion defects in the anteroseptal and inferolateral bill, could be artifactual but if real could represent areas of ischemia Calculated post stress ejection fraction 62%
[2017-05-02 16:00] VITALS: BP 122/68
--- NOTE | 2017-05-02 19:37 | Cardiology Progress Note ---
Assessment/Plan Assessment/Plan 1. Chest pain. 2. Recent fall with scalp laceration. 3. anemia gettign prbc tx echo norla wall motion perfusion imaging equivocal findign all trop neg would probably nto prusuit at this time unlesha recurrent sx Subjective Cardiovascular: Denies: chest pain, irregular heart rate Respiratory: Denies: shortness of breath Gastrointestinal/Abdominal: Denies: abdominal pain Genitourinary: Denies: burning Objective Last 24 Hour Vital Signs Date Time Temp Pulse Resp B/P (MAP) Pulse Ox O2 Delivery O2 Flow Rate FiO2 05/02/17 16:10 86 05/02/17 16:00 97.9 82 19 122/68 98 Room Air 05/02/17 13:43 81 139/67 05/02/17 12:00 97.9 81 19 139/67 99 Room Air 05/02/17 11:34 87 05/02/17 08:00 97.1 81 19 127/81 95 Room Air 05/02/17 07:20 72 05/02/17 04:00 97.7 78 20 111/63 94 Room Air 05/02/17 04:00 79 05/02/17 00:00 118 05/01/17 23:53 98.7 79 18 127/74 96 Room Air 05/01/17 21:27 117 124/86 05/01/17 20:00 85 05/01/17 20:00 98.1 117 20 124/86 97 Room Air General Appearance: no apparent distress, alert Cardiovascular: normal rate, regular rhythm Respiratory/Chest: lungs clear, normal breath sounds Abdomen: normal bowel sounds, non tender, soft Extremities: no swelling Intake and Output 05/02/17 05/03/17 19:00 07:00 Intake Total 680 ml Output Total 200 ml Balance 480 ml Intake Oral 680 ml Output Urine Total 200 ml # Voids 3 Laboratory Tests Test 05/02/17 07:50 White Blood Count 4.5 K/UL (4.8-10.8) L Red Blood Count 3.60 M/UL (4.70-6.10) L Hemoglobin 7.5 G/DL (14.2-18.0) L Hematocrit 25.3 % (42.0-52.0) L Mean Corpuscular Volume 70 FL (80-99) L Mean Corpuscular Hemoglobin 20.9 PG (27.0-31.0) L Mean Corpuscular Hemoglobin Concent 29.8 G/DL (32.0-36.0) L Red Cell Distribution Width 19.7 % (11.6-14.8) H Platelet Count 218 K/UL (150-450) Mean Platelet Volume 7.2 FL (6.5-10.1) Neutrophils (%) (Auto) % (45.0-75.0) Lymphocytes (%) (Auto) % (20.0-45.0) Monocytes (%) (Auto) % (1.0-10.0) Eosinophils (%) (Auto) % (0.0-3.0) Basophils (%) (Auto) % (0.0-2.0) Differential Total Cells Counted 100 Neutrophils % (Manual) 62 % (45-75) Lymphocytes % (Manual) 28 % (20-45) Monocytes % (Manual) 10 % (1-10) Eosinophils % (Manual) 0 % (0-3) Basophils % (Manual) 0 % (0-2) Band Neutrophils 0 % (0-8) Platelet Estimate Adequate Platelet Morphology Normal Hypochromasia 2+ Anisocytosis 2+ Microcytosis 1+ Sodium Level 136 mEQ/L (135-145) Potassium Level 4.0 mEQ/L (3.4-4.9) Chloride Level 97 mEQ/L (98-107) L Carbon Dioxide Level 28 mEQ/L (20-30) Anion Gap 11 (5-15) Blood Urea Nitrogen 11 mg/dL (7-23) Creatinine 0.6 mg/dL (0.7-1.2) L Estimat Glomerular Filtration Rate > 60 mL/min (>60) Glucose Level 98 mg/dL (74-106) Calcium Level 8.2 mg/dL (8.6-10.2) L Magnesium Level 2.0 mg/dL (1.7-2.5) Iron Level 16 ug/dL (59-158) L Total Iron Binding Capacity 312 ug/dL (250-400) Percent Iron Saturation 5 % (15-50) L Unsaturated Iron Binding 296 ug/dL (112-346) Ferritin 10 ng/mL (10-230) Total Bilirubin 0.4 mg/dL (0.0-1.2) Aspartate Amino Transf (AST/SGOT) 22 U/L (5-40) Alanine Aminotransferase (ALT/SGPT) 19 U/L (3-41) Alkaline Phosphatase 59 U/L (40-129) Troponin I < 0.30 ng/mL (<=0.30) Total Protein 6.3 g/dL (6.6-8.7) L Albumin 3.1 g/dL (3.5-5.2) L Globulin 3.2 g/dL Albumin/Globulin Ratio 0.9 (1.0-2.7) L Carcinoembryonic Antigen 2.8 ng/mL Vitamin B12 Level 622 pg/mL (211-946) Folate Pending ARAM BYERS May 02, 2017 19:37
[2017-05-02 20:18] VITALS: BP 125/74
[2017-05-02 20:45] VITALS: BP 122/82
[2017-05-02] MEDS ORDERED: Tubing IV Secondary IV ONE (22:54)
[2017-05-02] MEDS ORDERED: Tubing Blood Filter IV ONE (22:54)
[2017-05-02] MEDS ORDERED: NS 275ml ONE (22:54)
[2017-05-03 10:54] LABS: OTHERS PATHOLOGIST COMMENT
[2017-05-03] MEDS ORDERED: Iron Sucrose 100 MG in NS 55 ML IV SCH (21:00)
--- NOTE | 2017-05-04 14:44 | Cardiology Report ---
APPROVED REPORT EKG Measurement Heart [id number] Normal sinus rhythm Normal ECG
--- NOTE | 2017-05-05 11:11 | Discharge Summary ---
Discharge Summary Hospital Course Date of Admission May 01, 2017 at 04:15 Date of Discharge May 02, 2017 at 22:55 Admitting Diagnosis ACS, etoh intoxication HPI Moncho Warren is a 52 year old male who was admitted on May 01, 2017 at 04:15 for Acute Coronary Syndrome,Etoh Intoxication Hospital Course dc summary #[id number] Discharge Discharge Disposition Patient signed AMA Discharge Diagnoses: Constantine (Lynnecathleen)Carmelina NP May 05, 2017 11:11
--- NOTE | 2017-05-05 12:53 | Diagnostic Imaging Report ---
APPROVED REPORT CPT Code: 69987 Present Symptoms Comments: Pain BILATERAL: Imaging reveals a patent deep venous system bilaterally. There is no evidence of thrombus within the femoral, popliteal or tibial segments. The greater saphenous veins are also within normal limits. Doppler indicates normal spontaneous flow within these segments.
--- NOTE | 2017-05-06 04:45 | Discharge Summary 2 SIG ---
DATE OF ADMISSION: 05/01/2017 DATE OF SIGNING AGAINST MEDICAL ADVISE: 05/02/2017 Reason For admission: 52-year-old male presented to ED with alcohol intoxication. The patient was admitted to drinking alcohol, but could not quantify the amount. He reported intermittent heartburn. He denied shortness of breath, as well as exertional component but reported some chest discomfort. He denied nausea or vomiting. The patient reported recent head trauma resulting in a small head laceration. Workup in ED revealed no leukocytosis. Serum alcohol level -105. Anemia with hemoglobin- 8.6, hematocrit- 29.8, and MCV -71. LFTs were stable. Electrolytes and renal parameters were within normal limits. Troponin was negative. EKG revealed sinus tachycardia. No acute ischemic changes. CK was within normal limits. CT of the head revealed scalp swelling with suspecting scalp hematoma, but no acute intracranial finding or skull fracture was identified. The patient was admitted for further management. ADMITTING DIAGNOSES: 1. Chest pain 2. Rule out acute coronary syndrome. 3. Heartburn. 4. Gastroesophageal reflux disease. 5. Acute alcohol intoxication. 6. Acute toxic encephalopathy secondary to acute alcohol intoxication. 7. Alcohol abuse and dependency. 8. Microcytic anemia. 9. History of recent fall with a scalp laceration. Hospital Course: The patient was admitted to telemetry floor. Serial troponin were negative. EKG revealed no acute ischemic changes. The patient was ruled out for acute myocardial infarction. Echocardiogram revealed preserved ejection fraction of 70% and right ventricular systolic pressure of 28. Cardiology followed. Orchestra Teacher ordered stress test. Stress test revealed equivocal finding on perfusion imaging. Echo revealed normal wall motion with ejection fraction of 70%, right ventricular systolic pressure of 28, and mild ventricular hypertrophy. Chest pain was atypical, described as a discomfort from heartburn, likely related to gastroesophageal reflux disease. The patient started on PPI. CT of the head revealed large right high parietal scalp hematoma, but was negative for acute intracranial bleeding or mass effect. No evidence of calvarial injury. Venous duplex of bilateral lower extremities was pending. The patient started on aspirin and low-dose beta-rosa. The patient was started initially on admission on IV fluid with with folic acid, multivitamin, thiamine, and magnesium. Librium provided as needed for withdrawal symptoms. Ativan was on standby as needed for seizure. No seizure activity. The patient was counseled on abstinence from alcohol abuse. Neurology evaluation was pending. Hemoglobin and hematocrit were closely monitored. Anemia workup revealed anemia of iron deficiency with low ferritin stores. Hemoglobin trended down to 7.5. One unit of packed red blood cells was transfused. Venofer was ordered for three consecutive days, starting from day after transfusion. Stool OB was ordered. CEA was within normal limits. GI consult was requested for iron deficiency microcytic anemia to rule out GI bleeding. Pain management was provided. The patient decided to leave against medical advice. The patient pulled out his intravenous line and removed his tele box. The risks and consequences of signing against medical advice were discussed with the patient. The patient verbalized understanding of given instructions, signed against medical advise form and left. FINAL DIAGNOSES: 1. Chest pain, atypical, likely related to gastroesophageal reflux disease. 2. Gastroesophageal reflux disease 3. Acute alcoholic intoxication. 4. Acute toxic encephalopathy secondary to acute alcohol intoxication, resolved. 5. Microcytic anemia, iron deficiency. 6. Possible gastrointestinal bleeding. 7. Alcohol abuse and dependency. 8. History of recent fall with scalp laceration. 9. Large right parietal scalp hematoma secondary to fall. Carline Avila M.D. Carmelina NguyenLong [facility] CenterOz N[facility]ham DR: FRANKIE JOB#: [id number] CC: [id number]
== END 2017-05-02 22:55 | disposition left against medical advice (07) | DRG 243 ==
LOC: EDBD 01:44 → EMR 02:01 → 2E 04:15 → EDBEDREQ 04:46
PROC: 30233N1 Transfusion of Nonautologous Red Blood Cells into Peripheral Vein, Percutaneous Approach (ICD-10-PCS; principal; 2017-05-02)
DX: K21.9 Gastro-esophageal reflux disease without esophagitis (principal); G92 Toxic encephalopathy; E88.09 Other disorders of plasma-protein metabolism, not elsewhere classified; F10.229 Alcohol dependence with intoxication, unspecified; D50.9 Iron deficiency anemia, unspecified; K92.2 Gastrointestinal hemorrhage, unspecified; R07.89 Other chest pain; S01.01XD Laceration without foreign body of scalp, subsequent encounter; W19.XXXD Unspecified fall, subsequent encounter; R12 Heartburn; K44.9 Diaphragmatic hernia without obstruction or gangrene
CPT/HCPCS: 36415; 70450; 71010; 78452; 80053; 80300; 80329; 82378; 82550; 82553; 82607; 82728; 82746; 83540; 83550; 83735; 83880; 84484; 85007; 85025; 86850; 86870; 86900; 86901; 86904; 86920; 93005; 93017; 93306; 93970; 99285

== ENCOUNTER 2017-05-03 02:25 | Emergency (ER) | payer MEDICAID ==
[~2017-05-03] VITALS: Ht 165.1 cm; Wt 65.8 kg
[~2017-05-03 02:25] MED LIST: NKM
[2017-05-03 02:35] VITALS: BP 112/60
--- NOTE | 2017-05-03 03:28 | Emergency Room Report ---
History of Present Illness General Chief Complaint: Alcohol Intoxication Source: Patient, Medical Record, EMS Present Illness HPI Is a 52-year-old male with history of alcohol abuse. Been here multiple times. Patient presents with chief complaint of alcohol intoxication. He was brought in by EMS. He complaining of generalized pain. No withdrawal symptoms. No trauma. Similar symptom in the past. Allergies: Coded Allergies: No Known Allergies (Unverified , 05/01/17) Patient History Past Medical History: see triage record, old chart reviewed Past Surgical History: other Pertinent Family History: none Social History: Reports: alcohol use Immunizations: other Reviewed Nursing Documentation: PMH: Agreed, PSxH: Agreed Nursing Documentation-PMH Past Medical History: No Stated History Hx Cardiac Problems: No Hx Cancer: No Hx Gastrointestinal Problems: No Hx Neurological Problems: Yes Hx Head Trauma: Yes Review of Systems Eye: Denies: eye pain, blurred vision ENT: Denies: ear pain, nose congestion, throat swelling Respiratory: Denies: cough, shortness of breath Cardiovascular: Denies: chest pain, palpitations Gastrointestinal: Denies: abdominal pain, diarrhea, nausea, vomiting Musculoskeletal: Denies: back pain, joint pain Skin: Denies: rash Neurological: Denies: headache, numbness Endocrine: Denies: increased thirst, increased urine Hematologic/Lymphatic: Denies: easy bruising All Other Systems: negative except mentioned in HPI Physical Exam Vital Signs Date Time Temp Pulse Resp B/P (MAP) Pulse Ox O2 Delivery O2 Flow Rate FiO2 05/03/17 02:17 98.4 80 18 112/60 98 Room Air vitals normal Sp02 EP Interpretation: reviewed, normal General Appearance: well appearing, no apparent distress, alert Head: normocephalic, atraumatic Eyes: bilateral eye PERRL, bilateral eye EOMI ENT: hearing grossly normal, normal pharynx Neck: full range of motion, supple, no meningismus Respiratory: chest non-tender, lungs clear, normal breath sounds Cardiovascular #1: regular rate, rhythm, no murmur Gastrointestinal: normal bowel sounds, non tender, no mass, no organomegaly, no bruit, non-distended Musculoskeletal: back normal, gait/station normal, normal range of motion, other - Multiple old abrasion to her elbows. Psychiatric: mood/affect normal Skin: warm/dry Medical Decision Making Diagnostic Impression: Primary Impression: Acute alcoholic intoxication Qualified Codes: F10.929 - Alcohol use, unspecified with intoxication, unspecified ER Course Patient with alcohol intoxication. No trauma to warrant CT scan. We'll discharge home. Last Vital Signs Date Time Temp Pulse Resp B/P (MAP) Pulse Ox O2 Delivery O2 Flow Rate FiO2 05/03/17 02:17 98.4 80 18 112/60 98 Room Air Status: improved Disposition: HOME, SELF-CARE Condition: Stable Referrals: JAMARI BLANTON,REFERRING (PCP) Patient Instructions: Alcohol Intoxication, [id number] Additional Instructions: Followup with your Dr. in 7 days. Stop drinking alcohol. Go to rehabilitation. Return if worse. THEODORE PEOPLES M.D. May 03, 2017 03:28
[2017-05-03 04:12] VITALS: BP 132/64
[2017-05-03 05:05] VITALS: BP 132/64
== END 2017-05-03 05:05 | disposition home or self-care (01) ==
LOC: EDBD 02:25 → EMR 02:34
DX: F10.129 Alcohol abuse with intoxication, unspecified (principal)
CPT/HCPCS: 99284

== ENCOUNTER 2017-05-03 21:21 | Emergency (ER) | payer MEDICAID ==
[~2017-05-03] VITALS: Ht 165.1 cm; Wt 65.8 kg
[2017-05-03 21:30] VITALS: BP 133/91
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
[2017-05-03 22:44] LABS: TROPONIN I < 0.30 ng/mL (<=0.30)
[2017-05-03 23:26] VITALS: BP 118/64
[2017-05-04 03:36] VITALS: BP 128/73
[2017-05-04 06:01] VITALS: BP 128/73
== END 2017-05-04 06:01 | disposition home or self-care (01) ==
LOC: EDBD 21:21 → EMR 21:51
DX: F10.129 Alcohol abuse with intoxication, unspecified (principal); R07.9 Chest pain, unspecified
CPT/HCPCS: 84484; 93005; 99283

== ENCOUNTER 2017-05-06 14:53 | Emergency (ER) | payer MEDICAID ==
[~2017-05-06] VITALS: Ht 167.6 cm; Wt 72.6 kg
[2017-05-06 15:40] VITALS: BP 118/78
--- NOTE | 2017-05-06 16:22 | Emergency Room Report ---
History of Present Illness General Chief Complaint: Alcohol Intoxication Source: EMS Present Illness HPI The patient is a 52-year-old male brought in by EMS for presumed alcohol intoxication. He has been seen in this emergency department several times for the same complaint. He does not provide any information at this time Allergies: Coded Allergies: No Known Allergies (Unverified , 05/01/17) Patient History Past Medical History: see triage record Pertinent Family History: none Social History: Reports: alcohol use Reviewed Nursing Documentation: PMH: Agreed, PSxH: Agreed Nursing Documentation-PMH Past Medical History: No Stated History Hx Cardiac Problems: No Hx Cancer: No Hx Gastrointestinal Problems: No Hx Neurological Problems: Yes Hx Head Trauma: Yes Review of Systems All Other Systems: limited Physical Exam Vital Signs Date Time Temp Pulse Resp B/P (MAP) Pulse Ox O2 Delivery O2 Flow Rate FiO2 05/06/17 14:48 97.9 100 20 118/78 99 Room Air Sp02 EP Interpretation: reviewed, normal General Appearance: no apparent distress, GCS 15, non-toxic Head: normocephalic, atraumatic Eyes: bilateral eye normal inspection, bilateral eye PERRL ENT: hearing grossly normal, normal pharynx, no angioedema Neck: full range of motion, supple/symm/no masses Respiratory: chest non-tender, lungs clear, normal breath sounds, speaking full sentences Cardiovascular #1: regular rate, rhythm, no edema Musculoskeletal: back normal, digits/nails normal Neurologic: alert, responsive, sensory intact Skin: normal color, no rash, warm/dry, well hydrated Medical Decision Making PA Attestation Dr. Turk is my supervising physician. Patient management was discussed with my supervising physician Diagnostic Impression: Primary Impression: Acute alcoholic intoxication Qualified Codes: F10.929 - Alcohol use, unspecified with intoxication, unspecified ER Course The patient is a 52-year-old male brought in by EMS for presumed alcohol intoxication. DDx considered but not limited to: acute alcohol intoxication, hepatic encephalopathy, drug overdose, psychosis Physical exam: Vitals are within normal limits. No apparent distress. Patient is lethargic. Head is normocephalic atraumatic. Pupils are equally round and reactive to light The patient is arousable by touch or name. Lungs are clear to auscultation bilaterally. No abnormal tenderness. Abdomen is soft. Otherwise exam is unremarkable The patient is given time to rest in the emergency department. Upon reevaluation, patient is more alert with slurred speech. He was given more time to rest. The nurse then saw the patient walk out of the ED. He has eloped. Last Vital Signs Date Time Temp Pulse Resp B/P (MAP) Pulse Ox O2 Delivery O2 Flow Rate FiO2 05/06/17 15:40 97.9 69 20 118/78 99 Room Air Status: improved Disposition: ELOPED Condition: Unknown Referrals: JAMARI BLANTON,REFERRING (PCP) [facility] May 06, 2017 16:22
[2017-05-06 16:27] VITALS: BP 118/78
== END 2017-05-06 16:29 | disposition left against medical advice (07) ==
LOC: EDBD 14:53 → EMR 15:15
DX: F10.129 Alcohol abuse with intoxication, unspecified (principal)
CPT/HCPCS: 99282

== ENCOUNTER 2017-05-06 22:17 | Emergency (ER) | payer MEDICAID ==
[~2017-05-06] VITALS: Ht 162.6 cm; Wt 72.6 kg
[2017-05-06 22:40] VITALS: BP 150/80
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
[2017-05-07 02:51] VITALS: BP 145/79
[2017-05-07 03:44] VITALS: BP 145/79
== END 2017-05-07 03:44 | disposition home or self-care (01) ==
LOC: EDBD 22:17 → EMR 23:00
DX: F10.229 Alcohol dependence with intoxication, unspecified (principal); Z86.69 Personal history of other diseases of the nervous system and sense organs; Z87.828 Personal history of other (healed) physical injury and trauma
CPT/HCPCS: 99284

== ENCOUNTER 2017-05-12 14:56 | Emergency (ER) | payer MEDICAID ==
[~2017-05-12] VITALS: Ht 167.6 cm; Wt 70.3 kg
[2017-05-12 14:54] VITALS: BP 127/77
--- NOTE | 2017-05-12 15:07 | Emergency Room Report ---
History of Present Illness General Chief Complaint: Generalized Weakness Source: Patient, Medical Record, EMS Present Illness HPI 52YOM BIBEMS for "weak and dizzy." Patient was found sleeping "in the sun" on a bench. Bystander called EMS As for weak, patient endorses "light headedness." Denies unsteady gait, focal weakness. 12-lead shows sinus tachycardia. Glucose 120. Stable vitals. Patient has been here 7 times in last 2 weeks, including yesterday. Multiple times for suspected ETOH intox. Previous visits patient endorses "drinking every day." Today states "havent drank in years." Asking for juice, water. EMS placed left arm IV. Denies ETOH, drug use today Denies chest pain, SOB, abd pain, nausea/vomiting, headache had normal CT head yesterday when here for similar complaint. Allergies: Coded Allergies: No Known Allergies (Unverified , 05/01/17) Patient History Past Medical History: none Past Surgical History: none Pertinent Family History: none Social History: Reports: alcohol use Immunizations: UTD Reviewed Nursing Documentation: PMH: Agreed, PSxH: Agreed Nursing Documentation-PMH Past Medical History: No History, Except For Hx Cardiac Problems: No Hx Cancer: No Hx Gastrointestinal Problems: No Hx Neurological Problems: Yes Hx Cerebrovascular Accident: No - BRAIN INJURY Hx Head Trauma: Yes Review of Systems All Other Systems: negative except mentioned in HPI Physical Exam Vital Signs Date Time Temp Pulse Resp B/P (MAP) Pulse Ox O2 Delivery O2 Flow Rate FiO2 05/12/17 14:51 126 20 127/77 96 Room Air Sp02 EP Interpretation: reviewed, normal General Appearance: normal inspection, well appearing, no apparent distress, alert, GCS 15, non-toxic, other - Ruberous skin, dry Head: normocephalic, atraumatic Eyes: bilateral eye PERRL, bilateral eye EOMI ENT: normal ENT inspection, hearing grossly normal, normal voice Neck: normal inspection, full range of motion, supple, no bony tend Respiratory: normal inspection, lungs clear, normal breath sounds, no respiratory distress, no retraction, no wheezing Cardiovascular #1: regular rate, rhythm, no edema Gastrointestinal: normal inspection, normal bowel sounds, non tender, soft, no guarding, no hernia Genitourinary: no CVA tenderness Musculoskeletal: normal inspection, back normal, normal range of motion, Ivonne' s Sign negative Neurologic: normal inspection, alert, oriented x3, responsive, community health outreach worker III-XII nml as tested, motor strength/tone normal, speech normal Psychiatric: normal inspection, judgement/insight normal, mood/affect normal Skin: normal inspection, normal color, no rash, warm/dry, palpation normal Medical Decision Making Diagnostic Impression: Primary Impression: Episode of generalized weakness ER Course Generalized weakness Likely homeless No ETOH today Steady gait in ED Likely malingering for care home, food/water CT head negative yesterday Was given IVF NS via EMS placed IV Was given juice, time to rest in ED Observed for 2 hours DC Last Vital Signs Date Time Temp Pulse Resp B/P (MAP) Pulse Ox O2 Delivery O2 Flow Rate FiO2 05/12/17 14:54 20 127/77 96 Room Air 05/12/17 14:51 126 Status: improved Disposition: HOME, SELF-CARE FREDI YORK M.D. May 12, 2017 15:07
[2017-05-12 15:58] VITALS: BP 137/65
[2017-05-12 17:04] VITALS: BP 131/61
== END 2017-05-12 17:06 | disposition home or self-care (01) ==
LOC: EDBD 14:56 → EMR 15:20
DX: R53.1 Weakness (principal); R42 Dizziness and giddiness; Z87.820 Personal history of traumatic brain injury
CPT/HCPCS: 96360; 99284